=== PATIENT | female | born 1960 | race Asian ===

== ENCOUNTER 2021-09-09 18:07 | Emergency (ER) | payer BC ==
[~2021-09-09] VITALS: Ht 149.9 cm; Wt 70.9 kg
[2021-09-09] MEDS ORDERED: POVIDONE-IODINE 10% 15 ML SOLUTION UD TP ONE (19:45)
[2021-09-09] MEDS ORDERED: LIDOCAINE 1% 10 ML VIAL SQ ONE (19:45)
[2021-09-09] MEDS ORDERED: BACITRACIN 0.9 GM PACKET OINTMENT TP ONE (19:45)
[2021-09-09] MEDS ORDERED: ACETAMINOPHEN 325 MG TABLET PO ONE (19:45)
[2021-09-09] MEDS ORDERED: TraMADol HCL 50 MG TABLET PO ONE (19:45)
[2021-09-09 21:45] VITALS: BP 151/98
== END 2021-09-09 22:57 | disposition home or self-care (01) ==
LOC: EMS 18:07
DX: S01.81XA Laceration without foreign body of other part of head, initial encounter (principal); G80.9 Cerebral palsy, unspecified; W01.198A Fall on same level from slipping, tripping and stumbling with subsequent striking against other object, initial encounter; Y93.89 Activity, other specified; Y92.89 Other specified places as the place of occurrence of the external cause; Y99.8 Other external cause status
CPT/HCPCS: 12011; 70450; 99284; J3490

== ENCOUNTER 2021-09-11 16:34 | Emergency (ER) | payer BC ==
[~2021-09-11] VITALS: Ht 149.9 cm; Wt 70.9 kg
[2021-09-11 17:01] VITALS: BP 121/95
[2021-09-11] MEDS ORDERED: DIAZ2 PO (17:03)
[2021-09-11] MEDS ORDERED: NAPR-1197 PO (17:03)
[2021-09-11] MEDS ORDERED: ALBU8HFA IH (17:03)
== END 2021-09-11 17:13 | disposition home or self-care (01) ==
LOC: EMS 16:39
DX: S01.111D Laceration without foreign body of right eyelid and periocular area, subsequent encounter (principal); J45.909 Unspecified asthma, uncomplicated; G80.9 Cerebral palsy, unspecified; W01.0XXD Fall on same level from slipping, tripping and stumbling without subsequent striking against object, subsequent encounter
CPT/HCPCS: 99281; Z7502

== ENCOUNTER 2021-09-16 09:08 | Emergency (ER) | payer BC ==
[~2021-09-16] VITALS: Ht 149.9 cm; Wt 70.5 kg
[~2021-09-16 09:08] MED LIST: ALBU8HFA IH; DIAZ2 PO; NAPR-1197 PO
[2021-09-16 09:10] VITALS: BP 158/85
== END 2021-09-16 10:00 | disposition home or self-care (01) ==
LOC: EMS 09:12
DX: S01.81XD Laceration without foreign body of other part of head, subsequent encounter (principal); J45.909 Unspecified asthma, uncomplicated; G80.9 Cerebral palsy, unspecified; X58.XXXD Exposure to other specified factors, subsequent encounter
CPT/HCPCS: 99281; Z7502